=== PATIENT | male | born 1970 | race Caucasian/White ===

== ENCOUNTER 2021-10-13 19:13 | Emergency (ER) | payer OTHER ==
[2021-10-14] MEDS ORDERED: NORCO 5-325 TA1 EACH PO (12:30)
== END 2021-10-13 20:58 | disposition home or self-care (01) ==
LOC: FER 19:13
DX: S62.326A Displaced fracture of shaft of fifth metacarpal bone, right hand, initial encounter for closed fracture (principal); F17.210 Nicotine dependence, cigarettes, uncomplicated; Z28.310 Unvaccinated for COVID-19; W23.0XXA Caught, crushed, jammed, or pinched between moving objects, initial encounter
CPT/HCPCS: 73130